=== PATIENT | female | born 1995 | race Caucasian/White ===

== ENCOUNTER 2018-05-30 12:21 | Emergency (ER) | payer OTHER ==
[~2018-05-30] VITALS: Ht 157.5 cm; Wt 50.0 kg
[2018-05-30 14:07] VITALS: BP 128/82
== END 2018-05-30 14:12 | disposition home or self-care (01) ==
LOC: EMS 12:22
DX: F10.129 Alcohol abuse with intoxication, unspecified (principal); R51 Headache; Y90.9 Presence of alcohol in blood, level not specified